=== PATIENT | female | born 1965 | race Caucasian/White ===

== ENCOUNTER 2022-07-10 11:16 | Emergency (ER) | payer OTHER, SELFPAY ==
--- NOTE | ~2022-07-10 | XR_ITS ---
EXAMINATION: XR hand LT min 3V INDICATION: Left hand pain TECHNIQUE: Three views of the left hand are obtained. COMPARISON: None available FINDINGS: Bone alignment is normal. There is no fracture. There is mild osteoarthritis of multiple in terphalangeal joints. There is mild soft tissue swelling of the second finger. IMPRESSION: 1. Mild soft tissue swelling of the second finger without acute osseous abnormality. Reviewed, dictated and finalized at location A. IMPRESSION: 1. Mild soft tissue swelling of the second finger without acute osseous abnorma lity.
[2022-07-10 11:29] VITALS: BP 143/77; PULSE 75; RESP 16; TEMP 36.1; O2SAT 100
--- NOTE | 2022-07-10 12:28 | ED.UPPEXIN ---
HPI - Extremity Injury (Upper) General Chief Complaint: Extremity Injury, Upper Stated Complaint: Thumb Pain On Left Hand Time Seen by Provider: 07/10/22 12:48 Source: patient and RN notes reviewed Mode of arrival: ambulatory Limitations: no limitations History of Present Illness HPI narrative: 56-year-old female presents with concern for injury to the first digit of the left hand. She reports Sunday she was getting out of a hot tub when she slipped and fell catching herself with the left hand. She reports pain, bruising to the mid hand, first digit of the hand. She reports she took Motrin. complaint: injury to: left and finger Related Data Home Medications Medication Instructions Recorded Confirmed alprazolam 0.5 mg tablet 0.5 mg PO DIRECTED 07/10/22 07/10/22 amlodipine 5 mg tablet 5 mg PO DAILY 07/10/22 07/10/22 ergocalciferol (vitamin D2) 1,250 1,250 mcg PO DAILY 07/10/22 07/10/22 mcg (50,000 unit) capsule estradiol 2 mg tablet 2 mg PO DAILY 07/10/22 07/10/22 levothyroxine 50 mcg tablet 50 mcg PO DAILY 07/10/22 07/10/22 rizatriptan 10 mg tablet 10 mg PO DIRECTED 07/10/22 07/10/22 rosuvastatin 10 mg tablet 10 mg PO DAILY 07/10/22 07/10/22 topiramate 100 mg tablet 100 mg PO DIRECTED 07/10/22 07/10/22 topiramate 25 mg tablet 25 mg PO DIRECTED 07/10/22 07/10/22 Allergies Allergy/AdvReac Type Severity Reaction Status Date / Time bee venom protein (honey bee) Allergy Severe Anaphylactic Verified 08/09/19 07:31 Shock melon Allergy Severe Anaphylactic Verified 08/09/19 07:31 Shock tomato Allergy Severe Anaphylactic Verified 08/09/19 07:31 Shock watermelon Allergy Severe Anaphylactic Verified 08/09/19 07:31 Shock codeine Allergy Unknown GI upset Verified 10/05/16 09:02 Cantaloupe Allergy Severe Anaphylactic Uncoded 08/09/19 07:31 Shock Kiwi Allergy Severe Anaphylactic Uncoded 08/09/19 07:31 Shock Wasp Allergy Severe Anaphylactic Uncoded 08/09/19 07:31 Shock Review of Systems Review of Systems: CONSTITUTIONAL: Denies malaise, chills, sweats, or fever. SKIN: Denies rash or itching, open skin, laceration, abrasion, redness, warmth MUSCULOSKELETAL: Reports pain, bruising, limited range of motion to the first digit of left hand NEUROLOGIC: Denies numbness, weakness All systems reviewed & are unremarkable except as noted in HPI and below PMFSH Family History Family History (Updated 10/05/16 @ 09:06 by DOCTOR UNKNOWN) Father Diabetes mellitus Family history of cardiovascular disease Mother Family history of cardiovascular disease Other Family history of allergic disorder Family history of tuberculosis Hypertension Social History Social History Smoking status: Never smoker Alcohol intake: current Comments At time of signature, agree with nursing past medical, surgical, social and family history. There is no relevant family history pertinent to the presenting complaint Exam Narrative: GENERAL: Well-appearing, well-nourished, and in no acute distress. HEAD: Normocephalic, atraumatic. EYES: PERRLA, conjunctivae clear NECK: Supple. CHEST: Speaks in full sentences. No respiratory distress. HEART: Regular rate and rhythm. Normal and equal peripheral pulses. EXTREMITIES: First digit of left hand has normal sensation, limited strength and range of motion. No edema. Significant ecchymosis noted to the base of the first digit extending into the wrist. Normal sensation with sensitivity to light touch and pain. Mid hand tenderness. No open wounds, no skin tenting, no devitalized tissue or atrophy, no trophic changes, no obvious deformity, alignment normal, nearby joints and structures intact. Distal pulses palpable and equal bilaterally, skin warm, dry, pink. Capillary refill less than 3 seconds. SKIN: Warm, dry, no rash. NEURO: Alert and oriented x3. PSYCH: Normal mood and affect Course Course Emergency Course: Patient is aware of diagnosis, unders
== END 2022-07-10 13:08 | disposition home or self-care (01) ==
PROVIDERS: Emergency Provider Nurse Practitioner
DX: S69.92XA Unspecified injury of left wrist, hand and finger(s), initial encounter (principal); W01.0XXA Fall on same level from slipping, tripping and stumbling without subsequent striking against object, initial encounter
CPT/HCPCS: 29130; 73130; 99213; 99214; G0463

== ENCOUNTER 2023-02-06 08:12 | Emergency (ER) | payer OTHER, SELFPAY ==
--- NOTE | ~2023-02-06 | XR_ITS ---
EXAMINATION: XR elbow LT min 3V DATE: 02/06/2023 09:06 INDICATION: Left elbow injury. Fall. TECHNIQUE: 4 views of left elbow were obtained. COMPARISON: None. FINDINGS: There is a nondisplaced fracture at the radial head/neck junction. Joint spaces are normal. There is an elbow joint effusion. IMPRESSION: 1. Nondisplaced fracture at the radial head/neck junction. 2. Elbow joint effusion. Reviewed, dictated and finalized at location A.
--- NOTE | ~2023-02-06 | XR_ITS ---
EXAMINATION: XR wrist LT min 3V DATE: 02/06/2023 09:06 INDICATION: Left wrist injury. TECHNIQUE: 4 views of left wrist were obtained. COMPARISON: None. FINDINGS: Bone alignment is normal. No fracture. There is mild osteoarthritis of triscaphe joint and first carpometacarpal joint. There is a small loose body at triscaphe joint. IMPRESSION: 1. Mild polyarticular osteoarthritis. Reviewed, dictated and finalized at location A.
--- NOTE | ~2023-02-06 | XR_ITS ---
EXAMINATION: XR hand LT min 3V DATE: 02/06/2023 09:06 INDICATION: Left hand injury. TECHNIQUE: 3 views of left hand were obtained. COMPARISON: None. FINDINGS: Bone alignment is normal. No fracture. There is mild osteoarthritis of triscaphe joint, fir st carpometacarpal joint, and some of the interphalangeal joints. There is a small loose body at the triscaphe joint. IMPRESSION: 1. Mild polyarticular osteoarthritis. Reviewed, dictated and finalized at location A.
[2023-02-06 08:22] VITALS: BP 142/71; PULSE 100; RESP 16; TEMP 36.9; O2SAT 98
[2023-02-06 08:24] VITALS: BP 142/71; PULSE 100; RESP 16; TEMP 36.9; O2SAT 98
--- NOTE | 2023-02-06 08:24 | ED.UPPEXIN ---
HPI - Extremity Injury (Upper) General Chief Complaint: Extremity Injury, Upper Stated Complaint: Left Elbow/Hand Pain Time Seen by Provider: 02/06/23 08:28 Source: patient, RN notes reviewed and old records reviewed Mode of arrival: ambulatory Limitations: no limitations History of Present Illness HPI narrative: 57-year-old female presents to the [facility] with complaints of left elbow, forearm, wrist and hand pain. Patient reports that she tripped down 2 stairs landing on her elbow and forearm. Bruising noted to the palmar aspect left hand. Denies hitting head. No loss of consciousness. Denies neck pain or back pain MD complaint: injury to: left, elbow, forearm, wrist and hand Place: home Related Data Home Medications Medication Instructions Recorded Confirmed alprazolam 0.5 mg tablet 0.5 mg PO DIRECTED 07/10/22 02/06/23 amlodipine 5 mg tablet 5 mg PO DAILY 07/10/22 02/06/23 ergocalciferol (vitamin D2) 1,250 1,250 mcg PO DAILY 07/10/22 02/06/23 mcg (50,000 unit) capsule estradiol 2 mg tablet 2 mg PO DAILY 07/10/22 02/06/23 levothyroxine 50 mcg tablet 50 mcg PO DAILY 07/10/22 02/06/23 rizatriptan 10 mg tablet 10 mg PO DIRECTED 07/10/22 02/06/23 rosuvastatin 10 mg tablet 10 mg PO DAILY 07/10/22 02/06/23 topiramate 100 mg tablet 100 mg PO DIRECTED 07/10/22 02/06/23 topiramate 25 mg tablet 25 mg PO DIRECTED 07/10/22 02/06/23 Allergies Allergy/AdvReac Type Severity Reaction Status Date / Time bee venom protein (honey bee) Allergy Severe Anaphylactic Verified 02/06/23 08:23 Shock melon Allergy Severe Anaphylactic Verified 02/06/23 08:23 Shock tomato Allergy Severe Anaphylactic Verified 02/06/23 08:23 Shock watermelon Allergy Severe Anaphylactic Verified 02/06/23 08:23 Shock codeine Allergy Unknown GI upset Verified 02/06/23 08:23 Cantaloupe Allergy Severe Anaphylactic Uncoded 02/06/23 08:23 Shock Kiwi Allergy Severe Anaphylactic Uncoded 02/06/23 08:23 Shock Wasp Allergy Severe Anaphylactic Uncoded 02/06/23 08:23 Shock Review of Systems Review of Systems: All systems reviewed & are unremarkable except as noted in HPI and below Constitutional: Constitutional: Reports no additional constitutional complaints Eyes: Eyes: Reports no additional eye complaints ENT: Reports system reviewed and no additional complaints, except as documented Cardiovascular: Cardiovascular: Reports no additional cardiovascular complaints, Denies chest pain and Denies dyspnea Respiratory: Respiratory: Reports no additional respiratory complaints, Denies chest congestion, Denies cough and Denies dyspnea Gastrointestinal: Gastrointestinal: Reports no additional gastrointestinal complaints, Denies abdominal pain, Denies nausea and Denies vomiting Musculoskeletal: Musculoskeletal: Reports as per HPI Integumentary/Breasts: Skin/Breast: Reports system reviewed and no additional complaints, except as docu Neurologic: Reports system reviewed and no additional complaints, except as documented Psychiatric: Psychiatric: Reports no additional psychiatric complaints Allergic/Immunologic: Allergic/Immunologic: Reports no additional allergic/immunologic complaints PMF Family History Family History Father Diabetes mellitus Family history of cardiovascular disease Mother Family history of cardiovascular disease Other Family history of allergic disorder Family history of tuberculosis Hypertension Social History Social History Smoking status: Never smoker Alcohol intake: current Comments At the time of my signature, I reviewed and agree with the nursing past medical, surgical, social, and family history. There is no relevant family history pertinent to the patient complaint. Exam Const: General: cooperative, healthy appearing, comfortable, no acute distress, well developed,
== END 2023-02-06 09:53 | disposition home or self-care (01) ==
PROVIDERS: Emergency Provider Nurse Practitioner; PCP Family Medicine
DX: M25.522 Pain in left elbow (principal); S40.022A Contusion of left upper arm, initial encounter; S52.125A Nondisplaced fracture of head of left radius, initial encounter for closed fracture; W10.9XXA Fall (on) (from) unspecified stairs and steps, initial encounter; E78.00 Pure hypercholesterolemia, unspecified; I10 Essential (primary) hypertension; E03.9 Hypothyroidism, unspecified; Q07.00 Arnold-Chiari syndrome without spina bifida or hydrocephalus; F41.9 Anxiety disorder, unspecified; E55.9 Vitamin D deficiency, unspecified
CPT/HCPCS: 29105; 73080; 73110; 73130; 99214; A4565; G0463

== ENCOUNTER 2023-03-26 09:25 | Emergency (ER) | payer OTHER, SELFPAY ==
--- NOTE | ~2023-03-26 | XR_ITS ---
EXAMINATION: XR ribs LT 2V w CXR 2V INDICATION: Left-sided rib pain TECHNIQUE: Frontal and lateral views of the chest and 3 views of the left ribs were obtained. COMPARISON: None. FINDINGS: There are minimal airspace opacities of the left lung base. There is a small left pleural e ffusion. No pneumothorax is identified. There is an acute, minimally displaced fracture at the latera l aspect of the left eighth rib. There is a nondisplaced fracture at the lateral aspect of the left s eventh rib. IMPRESSION: 1. Acute fractures of the left seventh and eighth ribs. 2. Small left pleural effusion. 3. Minimal left basilar airspace opacity, likely atelectasis. Reviewed, dictated and finalized at location A.
--- NOTE | 2023-03-26 09:28 | ED.GENADULT ---
HPI - General Adult General Chief complaint: Unspecified Stated complaint: Fall; bruises; cough Time Seen by Provider: 03/26/23 09:28 Source: patient Mode of arrival: ambulatory Limitations: no limitations History of Present Illness HPI narrative: Cheri is a 57-year-old female patient presenting to the clinic today with complaints of recent fall that occurred on March 20. States she fell into a Jacuzzi that was empty and hit the left ribs and the right arm. Has bruising noted to the right arm but denies any pain. She reports she is having left rib pain and has developed a cough over the last 3 days. States coughing is making the rib pain worse. She is concerned that maybe she has pneumonia. She denies any fever or chills. States she does feel short of breath. Is able speak in full sentences. spO2 98% on room air. Related Data Home Medications Medication Instructions Recorded Confirmed alprazolam 0.5 mg tablet 0.5 mg PO DIRECTED 07/10/22 03/26/23 amlodipine 5 mg tablet 5 mg PO DAILY 07/10/22 03/26/23 ergocalciferol (vitamin D2) 1,250 1,250 mcg PO DAILY 07/10/22 03/26/23 mcg (50,000 unit) capsule estradiol 2 mg tablet 2 mg PO DAILY 07/10/22 03/26/23 levothyroxine 50 mcg tablet 50 mcg PO DAILY 07/10/22 03/26/23 rizatriptan 10 mg tablet 10 mg PO DIRECTED 07/10/22 03/26/23 rosuvastatin 10 mg tablet 10 mg PO DAILY 07/10/22 03/26/23 topiramate 100 mg tablet 100 mg PO DIRECTED 07/10/22 03/26/23 topiramate 25 mg tablet 25 mg PO DIRECTED 07/10/22 03/26/23 Allergies Allergy/AdvReac Type Severity Reaction Status Date / Time bee venom protein (honey bee) Allergy Severe Anaphylactic Verified 03/26/23 09:34 Shock melon Allergy Severe Anaphylactic Verified 03/26/23 09:34 Shock tomato Allergy Severe Anaphylactic Verified 03/26/23 09:34 Shock watermelon Allergy Severe Anaphylactic Verified 03/26/23 09:34 Shock codeine Allergy Unknown GI upset Verified 03/26/23 09:34 Cantaloupe Allergy Severe Anaphylactic Uncoded 03/26/23 09:34 Shock Kiwi Allergy Severe Anaphylactic Uncoded 03/26/23 09:34 Shock Wasp Allergy Severe Anaphylactic Uncoded 03/26/23 09:34 Shock Review of Systems Review of Systems: Pertinent positives per HPI. Patient denies any fever, chills, rash, headache, visual changes, dizziness, runny nose, sore throat, shortness of breath, chest pain, palpitations, nausea, vomiting, diarrhea, constipation, abdominal pain, or any urinary issues. PMFSH Past Medical History Medical History History of night terrors Family History Family History Father Diabetes mellitus Family history of cardiovascular disease Mother Family history of cardiovascular disease Other Family history of allergic disorder Family history of tuberculosis Hypertension Social History Social History Smoking status: Never smoker Alcohol intake: current Lack of Transportation: No Lack of Food: Never True Current Housing: I Have Housing Concerned About Future Housing: No Difficulty Paying Gas/Electric Bills: No Difficulty Paying for Meds: No Currently Unemployed: No Education: Bachelor's Degree Difficulty w/ Childcare or Family Care: No Comments At the time of my signature, I reviewed and agree with the nursing past medical, surgical, social, and family history. There is no relevant family history pertinent to the patient complaint. Exam Narrative: General: Well-developed, well nourished, in no apparent distress Head: Normocephalic, atraumatic Eyes: Pupils equally round and reactive to light bilaterally, EOM intact, sclera and conjunctive clear, no discharge, lids normal Ears: TMs intact and clear, ear canals clear, no drainage, grossly hearing normal. Nose: Nares patent, no dis
[2023-03-26 09:36] VITALS: BP 134/86; PULSE 90; RESP 16; TEMP 37.1; O2SAT 98
== END 2023-03-26 10:44 | disposition home or self-care (01) ==
PROVIDERS: Emergency Provider Nurse Practitioner Family; PCP Family Medicine
DX: J90 Pleural effusion, not elsewhere classified (principal); S40.021A Contusion of right upper arm, initial encounter; W17.89XA Other fall from one level to another, initial encounter; S22.42XA Multiple fractures of ribs, left side, initial encounter for closed fracture; E78.00 Pure hypercholesterolemia, unspecified; I10 Essential (primary) hypertension; E03.9 Hypothyroidism, unspecified; F41.9 Anxiety disorder, unspecified; E55.9 Vitamin D deficiency, unspecified
CPT/HCPCS: 71046; 71100; 99213; G0463

== ENCOUNTER 2023-06-19 09:57 | Emergency (ER) | payer OTHER, SELFPAY ==
--- NOTE | ~2023-06-19 | CT_ITS ---
EXAMINATION: CT abdomen pelvis w con DATE: 06/19/2023 14:31 INDICATION: Abdominal pain. Nausea and vomiting. Diarrhea. TECHNIQUE: Computed tomography (CT) of the abdomen and pelvis was performed with 100 mL Omnipaque 350 intravenous contrast. Automated exposure control and iterative reconstruction technique were employe d. The dose-length product was 1039.82 mGy-cm. COMPARISON: CT abdomen and pelvis 08/09/2019 FINDINGS: The visualized portions of the lung bases are clear without pneumonia or pleural effusion. The heart size is normal. No pericardial effusion. There is a small sliding hiatal hernia. There are surgical changes of the stomach. Pneumobilia is noted, likely from sphincterotomy. There is a 2.5 cm cyst in the liver. The spleen, pancreas, and adrenal glands are normal. There are cysts in the kidney s measuring up to 5 mm. There are changes of ventral hernia repair. There are no dilated loops of bow el. The appendix is normal. There are no pathologically enlarged lymph nodes. There is no free intrap eritoneal fluid. There are old left rib fractures. There is mild lumbar spondylosis. IMPRESSION: 1. Small sliding hiatal hernia. Reviewed, dictated and finalized at location A.
[2023-06-19 10:52] VITALS: BP 141/100; PULSE 110; RESP 20; TEMP 36.8; O2SAT 100
[2023-06-19 11:32] LABS: Basophils Percent Auto 0.3 % (0.2-1.2); Eosinophils Percent Auto 0.1 % (0-4.4); Hematocrit 39.3 % (37.0-47.0); Hemoglobin 12.6 g/dL (12.0-15.0); Immature Granulocyte Absolute 0.03 K/mm3 (0.00-0.031); Immature Granulocyte Percent A 0.3 % (0-0.5); Lymphocytes Absolute Auto 1.03 K/mm3 (0.9-3.2); Lymphocytes Percent Auto 11.1 % (18.3-44.2); Mean Corpuscular HGB Conc 32.1 g/dl (32-36); Mean Corpuscular Hemoglobin 32.2 pg (26-34); Mean Corpuscular Volume 100.5 fl (80-100); Mean Platelet Volume 8.3 fl (7.4-10.4); Monocytes Absolute Auto 0.8 K/mm3 (0.1-0.6); Monocytes Percent Auto 8.6 % (2.6-8.5); Neutrophils Absolute Auto 7.4 K/mm3 (1.3-6.7); Neutrophils Percent Auto 79.6 % (45.5-73.1); Platelet Count Result 175 k/mm3 (150-375); Red Blood Count 3.91 M/mm3 (4.2-5.4); Red Cell Distribution Width 15.6 % (11.5-14.5); White Blood Count 9.3 K/mm3 (4.5-10.0)
[2023-06-19 11:50] LABS: Alanine Aminotransferase 37 U/L (6-35); Alkaline Phosphatase 190 U/L (38-126); Anion Gap 7 mmol/L (8-16); Aspartate Amino Transferase 218 U/L (14-36); Bilirubin,Total 1.3 mg/dL (0.2-1.3); Blood Urea Nitrogen 8 mg/dL (7-17); Calcium 8.4 mg/dL (8.4-10.2); Carbon Dioxide 27 mmol/L (22-30); Chloride 101 mmol/L (98-107); Estimated CRCL calculation 97 ml/min; Estimated Glomerular Filt Rate > 60; Glucose 118 mg/dL (65-110); Lipase 46 U/L (23-300); Potassium 3.7 mmol/L (3.4-5.0); Sodium 135 mmol/L (137-145)
[2023-06-19 11:54] LABS: Appearance Urine Clear (Clear); Bacteria Urine None Seen /hpf; Bilirubin Urine 2+ (Negative); Blood Urine 1+ (Negative); Color Urine Dark Yellow (Yellow); Glucose Urine UA Negative (Negative); Ketones Urine 1+ mg/dL (Negative); Leukocyte Esterase Ur Negative LEU/UL (Negative); Mucus Urine Present /lpf; Nitrate Urine Negative (Negative); Non Pathogenic Casts 0-2; Protein Urine 2+ mg/dL (Negative); RBC Urine 0-2 /hpf (0-2); Specific Grav Ur 1.027 (1.001-1.035); Squamous Epithelial Cell Urine Few /hpf (Few); WBC Urine 0-5 /hpf; pH Urine 5.5 (5.0-9.0)
[2023-06-19 11:56] LABS: Add Urine Microscopic? YES
[2023-06-19 12:23] VITALS: BP 121/72; PULSE 81
[2023-06-19 12:24] VITALS: BP 131/84; PULSE 88
[2023-06-19 12:25] VITALS: BP 131/87; PULSE 96
[2023-06-19] MEDS: SODIUM CHLORIDE 0.9% IV 1,000 ML 999 ML IV CONT (13:13)
[2023-06-19] MEDS: FAMOTIDINE 20 MG/2 ML VIAL IV PUSH (13:13)
[2023-06-19] MEDS: KETOROLAC 30 MG/ML VIAL (*BKC) IV PUSH (13:13)
[2023-06-19] MEDS: ONDANSETRON INJ 4 MG/2 ML VIAL IV PUSH (13:13)
--- NOTE | 2023-06-19 14:35 | ED.GENADULT ---
HPI - General Adult General Chief complaint: Nausea/Vomiting/Diarrhea Stated complaint: n/v/d since Sunday Time Seen by Provider: 06/19/23 12:36 History of Present Illness HPI narrative: Cheri Menjivar is a 57 y/o female who presents with reports of nausea vomiting that started 2 days ago. She states she has pain to the mid abdomen and also started to have diarrhea today. Denies any fever/chills/ changes to her urine. She states she has not been able to keep any thing down for two days including water. Related Data Home Medications Medication Instructions Recorded Confirmed alprazolam 0.5 mg tablet 0.5 mg PO DIRECTED 07/10/22 03/30/23 amlodipine 5 mg tablet 5 mg PO DAILY 07/10/22 03/30/23 ergocalciferol (vitamin D2) 1,250 1,250 mcg PO DAILY 07/10/22 03/30/23 mcg (50,000 unit) capsule estradiol 2 mg tablet 2 mg PO DAILY 07/10/22 03/30/23 levothyroxine 50 mcg tablet 50 mcg PO DAILY 07/10/22 03/30/23 rizatriptan 10 mg tablet 10 mg PO DIRECTED 07/10/22 03/30/23 rosuvastatin 10 mg tablet 10 mg PO DAILY 07/10/22 03/30/23 topiramate 100 mg tablet 100 mg PO DIRECTED 07/10/22 03/30/23 topiramate 25 mg tablet 25 mg PO DIRECTED 07/10/22 03/30/23 Allergies Allergy/AdvReac Type Severity Reaction Status Date / Time bee venom protein (honey bee) Allergy Severe Anaphylactic Verified 06/19/23 12:18 Shock melon Allergy Severe Anaphylactic Verified 06/19/23 12:18 Shock tomato Allergy Severe Anaphylactic Verified 06/19/23 12:18 Shock watermelon Allergy Severe Anaphylactic Verified 06/19/23 12:18 Shock codeine Allergy Unknown GI upset Verified 06/19/23 12:18 Cantaloupe Allergy Severe Anaphylactic Uncoded 03/26/23 09:34 Shock Kiwi Allergy Severe Anaphylactic Uncoded 03/26/23 09:34 Shock Wasp Allergy Severe Anaphylactic Uncoded 03/26/23 09:34 Shock Review of Systems Review of Systems: CONSTITUTIONAL: Denies fever, chills, or sweats. EYES: Denies visual changes, redness, or discharge. ENT: Denies rhinorrhea, congestion, sore throat, or otalgia. CARDIOVASCULAR: Denies chest pain, palpitations, or edema. RESPIRATORY: Denies cough or dyspnea. GASTROINTESTINAL: Reports abdominal pain, nausea, vomiting, and diarrhea. GENITOURINARY: Denies dysuria or hematuria. SKIN: Denies rash or itching. MUSCULOSKELETAL: Denies back pain, joint pain, or myalgia. NEUROLOGIC: Denies headache, numbness, dizziness, or weakness. PSYCHIATRIC: Denies anxiety or depression. [facility] Past Medical History Medical History History of night terrors Family History Family History Father Diabetes mellitus Family history of cardiovascular disease Mother Family history of cardiovascular disease Other Family history of allergic disorder Family history of tuberculosis Hypertension Social History Social History Smoking status: Never smoker Alcohol intake: current Lack of Transportation: No Lack of Food: Never True Current Housing: I Have Housing Concerned About Future Housing: No Difficulty Paying Gas/Electric Bills: No Difficulty Paying for Meds: No Currently Unemployed: No Education: Bachelor's Degree Difficulty w/ Childcare or Family Care: No Exam Narrative: GENERAL: Well-appearing, well-nourished, and in no acute distress. HEAD: Normocephalic, atraumatic. EYES: PERRLA and EOMI. ENT: Nares clear, no rhinorrhea or epistaxis. Mucous membranes moist. Oropharynx without tonsillar hypertrophy exudate or other lesions. NECK: Supple. No adenopathy or masses. No carotid bruits or JVD CHEST: Clear to auscultation. No respiratory distress. No wheezes rales or rhonchi HEART: Regular rate and rhythm. No murmur heard. Normal peripheral pulses. ABDOMEN: nondistended, pain noted to mid abdomen with palpation, hypoactive bowel sounds
[2023-06-19 15:46] VITALS: PULSE 74; RESP 16; O2SAT 100
== END 2023-06-19 15:51 | disposition home or self-care (01) ==
PROVIDERS: Preventive Medicine Aerospace Medicine; Emergency Provider Nurse Practitioner Family; PCP Family Medicine
DX: K52.9 Noninfective gastroenteritis and colitis, unspecified (principal)
CPT/HCPCS: 36415; 74177; 80053; 81001; 83690; 85025; 96361; 96374; 96375; 99284; J1885; J2405; J7030; Q9967

== ENCOUNTER 2023-10-25 07:32 | Emergency (ER) | payer OTHER, SELFPAY ==
[2023-10-25 07:40] VITALS: BP 166/71; PULSE 88; RESP 18; TEMP 37.4; O2SAT 96
--- NOTE | 2023-10-25 07:43 | ED.UPPEXIN ---
HPI - Extremity Injury (Upper) General Chief Complaint: Extremity Injury, Upper Stated Complaint: L 5TH DIGIT INJURY, NEEDS RING CUT OFF Time Seen by Provider: 10/25/23 07:41 History of Present Illness HPI narrative: Patient is a 57-year-old female who presents ER with swelling to the left 5th digit. She struck her hand on a cabinet door last night and she had a ring on the finger. Her finger began to swell and she tried using metal tool to pry it off. She had numbness and tingling. Upon arrival to the ER she is finally able to remove the ring but she does have abrasion to the finger. No longer having numbness and tingling. Patient has normal range of motion. Related Data Home Medications Medication Instructions Recorded Confirmed alprazolam 0.5 mg tablet 0.5 mg PO DIRECTED 07/10/22 03/30/23 amlodipine 5 mg tablet 5 mg PO DAILY 07/10/22 03/30/23 ergocalciferol (vitamin D2) 1,250 1,250 mcg PO DAILY 07/10/22 03/30/23 mcg (50,000 unit) capsule estradiol 2 mg tablet 2 mg PO DAILY 07/10/22 03/30/23 levothyroxine 50 mcg tablet 50 mcg PO DAILY 07/10/22 03/30/23 rizatriptan 10 mg tablet 10 mg PO DIRECTED 07/10/22 03/30/23 rosuvastatin 10 mg tablet 10 mg PO DAILY 07/10/22 03/30/23 topiramate 100 mg tablet 100 mg PO DIRECTED 07/10/22 03/30/23 topiramate 25 mg tablet 25 mg PO DIRECTED 07/10/22 03/30/23 Allergies Allergy/AdvReac Type Severity Reaction Status Date / Time bee venom protein (honey bee) Allergy Severe Anaphylactic Verified 10/25/23 07:44 Shock melon Allergy Severe Anaphylactic Verified 10/25/23 07:44 Shock tomato Allergy Severe Anaphylactic Verified 10/25/23 07:44 Shock watermelon Allergy Severe Anaphylactic Verified 10/25/23 07:44 Shock codeine Allergy Unknown GI upset Verified 10/25/23 07:44 Cantaloupe Allergy Severe Anaphylactic Uncoded 10/25/23 07:44 Shock Kiwi Allergy Severe Anaphylactic Uncoded 10/25/23 07:44 Shock Wasp Allergy Severe Anaphylactic Uncoded 10/25/23 07:44 Shock Review of Systems Musculoskeletal: Musculoskeletal: Denies arthralgias and Reports joint swelling Neurologic: Denies focal weakness and Denies numbness PMFSH Past Medical History Medical History History of night terrors Family History Family History Father Diabetes mellitus Family history of cardiovascular disease Mother Family history of cardiovascular disease Other Family history of allergic disorder Family history of tuberculosis Hypertension Social History Social History Smoking status: Never smoker Alcohol intake: current Lack of Transportation: No Lack of Food: Never True Current Housing: I Have Housing Concerned About Future Housing: No Difficulty Paying Gas/Electric Bills: No Difficulty Paying for Meds: No Currently Unemployed: No Education: Bachelor's Degree Difficulty w/ Childcare or Family Care: No Exam Narrative: GENERAL: Well-appearing, well-nourished, and in no acute distress. HEAD: Normocephalic, atraumatic. EXTREMITIES: Left 5th digit with 0.5 cm abrasion over the dorsal aspect of proximal phalanx. Normal range of motion and no tenderness to the joints of the affected digit. Normal capillary refill. SKIN: Warm, dry, no rash. NEURO: Alert and oriented x3. PSYCH: Normal mood and affect. Course Course Emergency Course: Tetanus updated. Discharge home. Vital Signs Vital signs: Vital Signs Temperature 99.4 F 10/25/23 07:40 Pulse Rate 88 10/25/23 07:40 Respiratory Rate 18 10/25/23 07:40 Blood Pressure 166/71 H 10/25/23 07:40 Pulse Oximetry 96 10/25/23 07:40 Oxygen Delivery Room Air 10/25/23 07:40 Temperature 99.4 F 10/25/23 07:40 Pulse Rate 88 10/25/23 07:40 Respiratory Rate 18 10/25/23 07:40 Blood Pressure 166/71 H
[2023-10-25] MEDS: TETANUS,DIPHTHERIA,AC PERTUSSIS ADULT (0.5 ML) BOOSTRIX IM (08:01)
== END 2023-10-25 08:07 | disposition home or self-care (01) ==
LOC: ANHED 08:02
PROVIDERS: Emergency Provider Emergency Medicine; PCP Family Medicine
DX: S60.417A Abrasion of left little finger, initial encounter (principal); Z23 Encounter for immunization; W49.04XA Ring or other jewelry causing external constriction, initial encounter
CPT/HCPCS: 90471; 90715; 99282

== ENCOUNTER → 2024-05-19 14:48 | Outpatient (CLI) | payer OTHER, SELFPAY ==
--- NOTE | ~2024-05-19 | XR_ITS ---
XR scapula RT Ordering provider: Rodger Mace, History: . PAIN IN RT SHOULDER AND SHOULDER BLADE m25.511 . Comparison: None. FINDINGS: BONES: No acute fracture or dislocation. JOINT SPACES: The acromioclavicular joint is normal. The glenohumeral joint is normal. Degenerative c hanges in the area of the insertion of the supraspinatus tendon SOFT TISSUES: Normal. IMPRESSION: No acute osseous abnormality right shoulder. . Reviewed, dictated and finalized at location A.
--- NOTE | ~2024-05-19 | XR_ITS ---
XR shoulder RT min 2V Ordering provider: Rodger Mace, History: . PAIN IN RT SHOULDER AND SHOULDER BLADE m25.511 . Comparison: None. FINDINGS: BONES: No acute fracture or dislocation. JOINT SPACES: The acromioclavicular joint is normal. The glenohumeral joint is normal. Cystic areas s een in the greater tuberosity suggestive of degenerative changes. SOFT TISSUES: Normal. IMPRESSION: No acute osseous abnormality right shoulder. Degenerative changes in the area of the insertion of the supraspinatus tendon. Reviewed, dictated and finalized at location A.
== END ==
PROVIDERS: PCP Family Medicine; Visit Provider Family Medicine
DX: M19.011 Primary osteoarthritis, right shoulder (principal)
CPT/HCPCS: 73010; 73030